=== PATIENT | female | born 2000 | race African-American/Black ===

== ENCOUNTER 2020-08-15 14:27 | Inpatient (IN) ==
[2020-08-15 15:16] LABS: Basophils % 0.5 % (0.0-0.8); Hematocrit 28.5 VOL% (35.7-47.0); Hemoglobin 8.9 GM/DL (12.0-16.0); Immature Granulocytes % 0.7 %; Immature Granulocytes Absolute 0.03 #; Lymphocytes # 1.6 10*3/uL (1.4-4.0); Lymphocytes % 35.5 % (21.3-54.2); Mean Corpuscular HGB Conc 31.2 GM/DL (32-36); Mean Corpuscular Volume 89.1 FL (87-102); Mean Platelet Volume 12.7 FL (9.6-12.0); Monocytes % 7.7 % (1.7-12.7); Neutrophils % 55.6 % (38.7-73.9); Platelet Count 148 T/CUMM (130-400); Red Cell Distribution Width 13.1 % (9.3-17.3); White Blood Count 4.4 T/CUMM (4-12)
[2020-08-15 15:22] LABS: Bacteria,Urine Occasional /HPF (Few); Bilirubin,Urine Negative (Negative); Blood, Urine Negative (Negative); Glucose,Urine (UA) Negative (Negative); Ketones,Urine Negative (Negative); Nitrite,Urine Negative (Negative); Protein,Urine Negative; RBC,Urine 6 /HPF (0-4); Squamous Epithelial Cell,Urine Occasional /HPF (0-10); Urine Appearance Slightly Hazy (Clear); Urine Color Yellow (Yellow); Urine Specific Gravity 1.004 (1.001-1.035); Urine Urobilinogen < 2.0 EU/DL (0.2-1.0); WBC,Urine 3 /HPF (0-6)
[2020-08-15 15:25] LABS: INR 0.9; PT Patient Result 9.8 SECS (9.8-11.9); Partial Thromboplastin Time 32.5 SECS (23.9-33.8)
[2020-08-15 15:42] LABS: Albumin 2.8 G/DL (3.4-5.0); Anisocytosis 1+; Bilirubin,Direct 0.11 MG/DL (0.0-0.20); Bilirubin,Total 0.4 MG/DL (0.2-1.0); Calcium 8.5 MG/DL (8.5-10.1); Hypochromasia 1+; Lymphocytes 35 % (20-55); Osmolality,Calculated 270.7 MOS/KG (273-304); Platelet Estimate Adequate; Polychromasia Few; Potassium 3.4 MMOL/L (3.5-5.1); Segmented Neutrophils 58 % (50-85); Total Cells Counted 100; Total Protein 6.8 G/DL (6.4-8.3)
[2020-08-15] MEDS ORDERED: MEPERIDINE 50 MG/1 ML VIAL IM PRN (16:34)
[2020-08-15] MEDS ORDERED: ONDANSETRON 4 MG/2 ML VIAL IV PRN (16:34)
[2020-08-15] MEDS: LACTATED RINGERS 1,000 ML IV SCH ×2 (16:41→23:57)
[2020-08-15] MEDS: hydrALAZINE 20 MG/1 ML VIAL IV PRN (16:48)
[2020-08-15] MEDS ORDERED: LACTATED RINGERS 1,000 ML IV SCH (17:00)
[2020-08-15] MEDS: LABETALOL 200 MG TABLET PO SCH (17:36)
[2020-08-15] MEDS ORDERED: LABETALOL 200 MG TABLET PO SCH (21:00)
[2020-08-16] MEDS ORDERED: AMPICILLIN INJ 2,000 MG in SODIUM CHLORIDE 0.9% 100 ML IV ONE (00:01)
[2020-08-16] MEDS: LABETALOL 200 MG TABLET PO SCH ×2 (00:55→09:24)
[2020-08-16] MEDS: BUTORPHANOL 2 MG/ML VIAL IV PRN ×4 (01:00→08:38)
[2020-08-16] MEDS: AMPICILLIN INJ 1,000 MG in SODIUM CHLORIDE 0.9% 100 ML IV SCH ×2 (03:48→07:52)
[2020-08-16] MEDS ORDERED: OXYTOCIN/LR 20 UNIT/1,000 ML BAG IV SCH (07:00)
[2020-08-16] MEDS ORDERED: NALOXONE 0.4 MG/ML VIAL IV PRN (07:42)
[2020-08-16] MEDS ORDERED: hydrOXYzine HCL 25 MG/1 ML VIAL IM PRN (07:42)
[2020-08-16] MEDS ORDERED: FAMOTIDINE 20 MG/2 ML VIAL IV ONE (07:42)
[2020-08-16] MEDS ORDERED: diphenhydrAMINE 50 MG/1 ML VIAL IV PRN ×2 (07:42)
[2020-08-16] MEDS ORDERED: PROMETHAZINE 25 MG/1 ML VIAL IM ONE (07:42)
[2020-08-16] MEDS ORDERED: LACTATED RINGERS 1,000 ML IV ONE (07:42)
[2020-08-16] MEDS ORDERED: ePHEDrine 50 MG/ML VIAL IV PRN (07:42)
[2020-08-16] MEDS ORDERED: CITRIC ACID/SODIUM CITRATE 30 ML UDCUP PO ONE (07:42)
[2020-08-16] MEDS ORDERED: fentaNYL 2 MCG/ROPIV 0.2% EPID 100 ML EPIDURAL SCH (08:00)
[2020-08-16 09:50] LABS: Bacteria,Urine Occasional /HPF (Few); Bilirubin,Urine Negative (Negative); Blood, Urine Small mg/dL (Negative); Glucose,Urine (UA) Negative (Negative); Ketones,Urine Negative (Negative); Nitrite,Urine Negative (Negative); Protein,Urine Negative; RBC,Urine 1 /HPF (0-4); Squamous Epithelial Cell,Urine Occasional /HPF (0-10); Urine Appearance CLEAR (Clear); Urine Color Straw (Yellow); Urine Specific Gravity 1.004 (1.001-1.035); Urine Urobilinogen < 2.0 EU/DL (0.2-1.0); WBC,Urine 1 /HPF (0-6)
[2020-08-16] MEDS ORDERED: LIDOCAINE 1% 50 ML VIAL ONE (10:09)
[2020-08-16] MEDS ORDERED: OXYTOCIN 10 UNIT/ML VIAL IV ONE (10:10)
[2020-08-16] MEDS ORDERED: miSOPROStoL 200 MCG TABLET RECTAL ONE (10:10)
[2020-08-16] MEDS ORDERED: CARBOPROST TROMETHAMINE 250 MCG/ML AMP IM ONE (10:10)
[2020-08-16] MEDS ORDERED: OXYTOCIN 10 UNIT/ML VIAL ONE (10:14)
[2020-08-16] MEDS ORDERED: SODIUM CHLORIDE 0.9% 1,000 ML IV PRN (10:22)
[2020-08-16 10:36] LABS: Cord Venous Blood HCO3 22.6 MMOL/L; Cord Venous Blood PCO2 51.1 MMHG; Cord Venous Blood PO2 25.7
[2020-08-16 10:39] LABS: Cord Arterial Blood HCO3 22.1 MMOL/L
[2020-08-16] MEDS ORDERED: LABETALOL 100 MG TABLET PO ONE (11:21)
[2020-08-16] MEDS ORDERED: hydrALAZINE 20 MG/1 ML VIAL IV PRN (11:21)
[2020-08-16] MEDS ORDERED: IBUPROFEN 800 MG TABLET PO PRN ×2 (12:54→13:56)
[2020-08-16] MEDS ORDERED: WITCH HAZEL PADS 100/JAR TOP PRN (13:56)
[2020-08-16] MEDS ORDERED: HYDROCORTISONE 2.5% RECTAL CREAM 30 GM TUBE TOP PRN (13:56)
[2020-08-16] MEDS ORDERED: RHO(D) IMMUNE GLOBULIN 300 MCG SYRINGE IM ONE (13:56)
[2020-08-16] MEDS ORDERED: ONDANSETRON 4 MG/2 ML VIAL IV PRN (13:56)
[2020-08-16] MEDS ORDERED: DIPH/TET/ACEL PERT BOOSTER VACCINE 0.5 ML VIAL IM ONE (13:56)
[2020-08-16] MEDS ORDERED: OXYTOCIN/LR 20 UNIT/1,000 ML BAG IV ONE (13:56)
[2020-08-16] MEDS ORDERED: oxyCODONE/ACETAMINOPHEN 5-325 MG TABLET PO PRN ×2 (13:56)
[2020-08-16] MEDS ORDERED: ACETAMINOPHEN 325 MG TABLET PO PRN (13:56)
[2020-08-16] MEDS ORDERED: BISACODYL 10 MG SUPP RECTAL PRN (13:56)
[2020-08-16] MEDS ORDERED: BENZOCAINE 20%/MENTHOL 0.5% SPRAY 56 GM CAN TOP PRN (13:56)
[2020-08-16] MEDS ORDERED: MEASLES/MUMPS/RUBELLA VACCINE 0.5 ML VIAL SUBCUT ONE (13:56)
[2020-08-16] MEDS ORDERED: LANOLIN 50% CREAM 0.3 OZ TUBE TOP PRN (13:56)
[2020-08-16] MEDS ORDERED: LABETALOL 100 MG TABLET PO SCH (17:30)
[2020-08-16 19:20] LABS: Hematocrit 29.1 VOL% (35.7-47.0); Hemoglobin 9.7 GM/DL (12.0-16.0)
[2020-08-17] MEDS ORDERED: LABETALOL 200 MG TABLET ONE ×2 (01:15→09:31)
[2020-08-17] MEDS: DOCUSATE SODIUM 100 MG CAPSULE PO SCH ×3 (01:30→21:55)
[2020-08-17] MEDS: LABETALOL 100 MG TABLET PO SCH ×3 (01:30→18:09)
[2020-08-17 05:55] LABS: Basophils % 0.2 % (0.0-0.8); Eosinophils % 0.1 % (0.00-10.9); Hematocrit 25.9 VOL% (35.7-47.0); Hemoglobin 8.6 GM/DL (12.0-16.0); Immature Granulocytes % 0.6 %; Immature Granulocytes Absolute 0.05 #; Lymphocytes # 1.2 10*3/uL (1.4-4.0); Mean Corpuscular HGB Conc 33.2 GM/DL (32-36); Mean Corpuscular Volume 86.9 FL (87-102); Mean Platelet Volume 13.1 FL (9.6-12.0); Neutrophils % 78.1 % (38.7-73.9); Red Blood Count 2.98 MC/CUMM (3.8-5.5); Red Cell Distribution Width 13.7 % (9.3-17.3); White Blood Count 8.1 T/CUMM (4-12)
[2020-08-17 05:56] LABS: Platelet Count 91 T/CUMM (130-400)
[2020-08-17 06:17] LABS: Hypochromasia 2+; Microcytosis 1+; Platelet Estimate Decreased
[2020-08-18] MEDS: LABETALOL 100 MG TABLET PO SCH ×3 (01:30→17:31)
[2020-08-18 06:28] LABS: Basophils % 0.3 % (0.0-0.8); Eosinophils % 0.2 % (0.00-10.9); Hematocrit 25.8 VOL% (35.7-47.0); Hemoglobin 8.4 GM/DL (12.0-16.0); Immature Granulocytes % 0.6 %; Immature Granulocytes Absolute 0.04 #; Lymphocytes # 1.3 10*3/uL (1.4-4.0); Lymphocytes % 20.7 % (21.3-54.2); Mean Corpuscular HGB Conc 32.6 GM/DL (32-36); Mean Corpuscular Volume 86.6 FL (87-102); Mean Platelet Volume 12.1 FL (9.6-12.0); Monocytes % 4.1 % (1.7-12.7); Neutrophils % 74.1 % (38.7-73.9); Platelet Count 102 T/CUMM (130-400); Red Blood Count 2.98 MC/CUMM (3.8-5.5); White Blood Count 6.4 T/CUMM (4-12)
[2020-08-18] MEDS ORDERED: LABETALOL 200 MG TABLET ONE (09:28)
[2020-08-18] MEDS: DOCUSATE SODIUM 100 MG CAPSULE PO SCH ×2 (09:33→21:16)
[2020-08-19] MEDS: LABETALOL 100 MG TABLET PO SCH ×3 (01:30→17:48)
[2020-08-19] MEDS: hydrALAZINE 20 MG/1 ML VIAL IV PRN (05:33)
[2020-08-19] MEDS ORDERED: LACTATED RINGERS 1,000 ML IV SCH (06:00)
[2020-08-19] MEDS: DOCUSATE SODIUM 100 MG CAPSULE PO SCH (09:51)
[2020-08-19 16:17] VITALS: BP 147/114
[2020-08-19] MEDS ORDERED: amLODIPine 10 MG TABLET PO ONE (16:29)
== END 2020-08-19 18:10 | disposition home or self-care (01) | DRG 560 ==
LOC: N.LDOUT 14:27 → N.LD 14:34 → N.OB 08-19 08:21
PROVIDERS: ADMIT Specialist; ATTEND Specialist